=== PATIENT | female | born 1995 | race Caucasian/White ===

== ENCOUNTER 2022-02-27 15:51 | Outpatient (REF) | payer OTHER, SELFPAY ==
[2022-02-27 16:36] LABS: HCT 42.8 % (36.0-46.0); HGB 13.9 g/dL (11.2-15.7); MCH 26.7 pg (27.0-33.0); MCHC 32.5 % (32.0-36.0); MCV 82 fL (80-95); MPV 10.3 fL (8.0-11.0); Platelet Count 277 10^3/uL (130-400); RBC 5.21 10^6/uL (3.93-5.22); RDW 12.3 % (11.7-14.6); WBC 7.18 10^3/uL (4.4-10.8)
[2022-02-27 17:00] LABS: Anion Gap 8.3 mmol/L (3-11); BUN 11 mg/dL (7-18); CO2 27.7 mmol/L (21.0-32.0); CREATININE 0.7 mg/dL (0.55-1.02); Calcium 9.3 mg/dL (8.5-10.1); Chloride 105 mmol/L (98-107); Estimated GFR 120.74 (mL/min/1.73m2); Ferritin 24 ng/mL (8-252); Glucose 88 mg/dL (74-106); Potassium 3.9 mmol/L (3.5-5.1); Sodium 141 mmol/L (136-145); TSH (W/Ref FT4) 0.77 uIU/mL (0.36-3.74)
[2022-02-27 17:10] LABS: Vitamin D 25 Total 19.6 ng/mL (30-100)
== END 2022-02-27 15:52 | disposition home or self-care (01) ==
LOC: NCHCN 15:51
PROVIDERS: Visit Provider Nurse Practitioner Family
DX: Z00.00 Encounter for general adult medical examination without abnormal findings (principal); R68.89 Other general symptoms and signs; Z86.2 Personal history of diseases of the blood and blood-forming organs and certain disorders involving the immune mechanism; E55.9 Vitamin D deficiency, unspecified
CPT/HCPCS: 80048; 82306; 85027; 82728; 84443

== ENCOUNTER 2023-10-01 15:56 | Outpatient (REF) | payer BC, SELFPAY ==
--- NOTE | 2023-10-01 11:00 | PAPFT_PTH ---
PATIENT: Phil Tadeo LOC: [facility]#:[id number] AGE/SX: 28/F ROOM: RE10/01/[address]: Aracelis Clarke : 1995 BED: DIS: 10/01/2023 SPEC #: [id number] RECD: 10/01/23 17:34 STATUS: HILDA REQ #: [id number] ASHLEE: 10/01/23 11:[address]: Aracelis Clarke DEPT: [facility] Cytology RECD BY: Cindy Shelton ENTERED: 10/01/23 17:35 SP TYPE: PAPFT OTHR DR: Unknown,Unknown Tissues: 1 - CX/ENDOCX FOR PAP SMEARS Procedures: PAP THIN PREP/[facility] Screening HPV DNA PROBE Comments: [id number] (HPV 16 & 18/45) (CHLAMYDIA/GC)
[2023-10-01 15:47] LABS: HCT 43.3 % (36.0-46.0); HGB 14.4 g/dL (11.2-15.7); MCH 27.9 pg (27.0-33.0); MCHC 33.3 % (32.0-36.0); MCV 84 fL (80-95); MPV 10.7 fL (8.0-11.0); Neutrophils % 67.8 %; Platelet Count 264 10^3/uL (130-400); RBC 5.17 10^6/uL (3.93-5.22); RDW 12.5 % (11.7-14.6); RDW-SD 37.8 fL; WBC 9.58 10^3/uL (4.4-10.8)
[2023-10-01 15:48] LABS: Abs Immature Grans 0.01 10^3/uL (0.0-0.06); Absolute Basophil Count 0.03 10^3/uL (0.0-0.2); Absolute Eosinophil Count 0.04 10^3/uL (0.0-0.7); Absolute Lymphocyte Count 2.28 10^3/uL (1.2-3.4); Absolute Monocyte Count 0.73 10^3/uL (0.1-0.8); Absolute Neutrophil Count 6.49 10^3/uL (1.2-6.7); Basophils % 0.3 %; Eosinophils % 0.4 %; Immature Grans % 0.1 %; Lymphocytes % 23.8 %; Monocytes % 7.6 %
[2023-10-01 16:29] LABS: ALT 18 U/L (14-59); AST 19 U/L (15-37); Albumin 4.4 g/dL (3.4-5.0); Alkaline Phosphatase 72 U/L (46-116); Anion Gap 11.6 mmol/L (3-11); BUN 9 mg/dL (7-18); Bilirubin, Total 0.93 mg/dL (0.2-1.0); CO2 27.4 mmol/L (21.0-32.0); CREATININE 0.8 mg/dL (0.55-1.02); Calcium 9.3 mg/dL (8.5-10.1); Chloride 103 mmol/L (98-107); Estimated GFR 101.59 (mL/min/1.73m2); Ferritin 55 ng/mL (8-252); Glucose 79 mg/dL (74-106); Potassium 3.8 mmol/L (3.5-5.1); Sodium 142 mmol/L (136-145); TSH (W/Ref FT4) 0.85 uIU/mL (0.36-3.74); Total Protein 8.3 g/dL (6.4-8.2); Vitamin D 25 Total 20.1 ng/mL (30-100)
[2023-10-02 09:19] LABS: Syphilis Serology (RPR) Negative (Negative)
[2023-10-02 09:29] LABS: Hepatitis C Ab w Rflx HCV PCR Negative (Negative)
[2023-10-02 10:15] LABS: HIV-1/2 Ag & Ab Screen Negative (Negative)
[2023-10-02 12:45] LABS: Chlamydia Result Negative (Negative); GC Result Negative (Negative)
== END 2023-10-01 15:57 | disposition home or self-care (01) ==
LOC: NCHCN 15:56
PROVIDERS: Visit Provider Nurse Practitioner Family
DX: Z00.00 Encounter for general adult medical examination without abnormal findings (principal); E55.9 Vitamin D deficiency, unspecified; N89.8 Other specified noninflammatory disorders of vagina; Z13.29 Encounter for screening for other suspected endocrine disorder; Z13.228 Encounter for screening for other metabolic disorders; Z11.3 Encounter for screening for infections with a predominantly sexual mode of transmission; Z11.4 Encounter for screening for human immunodeficiency virus [HIV]; Z11.59 Encounter for screening for other viral diseases; Z12.4 Encounter for screening for malignant neoplasm of cervix; R87.612 Low grade squamous intraepithelial lesion on cytologic smear of cervix (LGSIL); Z11.51 Encounter for screening for human papillomavirus (HPV)
CPT/HCPCS: 80053; 82306; 86803; 87389; 87491; 87591; 88142; 82728; 84443; 85025; 86592; 87480; 87510; 87624; 87660

== ENCOUNTER 2023-12-05 18:21 | Outpatient (REF) | payer BC, SELFPAY | END 2023-12-05 18:22 | disposition home or self-care (01) | LOC: NCHCN 18:21 | PROVIDERS: PCP Nurse Practitioner Family; Visit Provider Nurse Practitioner Family | DX: N76.0 Acute vaginitis (principal) | CPT/HCPCS: 87480; 87510; 87660 ==